=== PATIENT | male | born 1965 | race Caucasian/White ===

== ENCOUNTER 2024-07-17 09:02 | Outpatient (CLI) | payer OTHER, SELFPAY | END 2024-07-17 09:03 | disposition home or self-care (01) | LOC: NFLDUCREF 09:03 | PROVIDERS: PCP Nurse Practitioner; Visit Provider Nurse Practitioner | DX: L02.31 Cutaneous abscess of buttock (principal) | CPT/HCPCS: 87070 ==

== ENCOUNTER 2025-07-04 18:51 | Emergency (ER) | payer OTHER, SELFPAY ==
[2025-07-04] VITALS (19 sets, daily range): BP systolic 125–163; BP diastolic 85–104; PULSE 52–72; RESP 14–28; TEMP 36.9; O2SAT 91–95; BMI 27.6
--- OUTSIDE RECORDS SUMMARY | 2025-07-04 18:53 | XMS_ITS | Clinical Summary ---
Author Organization [facility] Address [address] [place] [address]. [place] [address] Care Team Providers Care Medical Office Asst Name Role Phone Adan English MD Primary Care Provider U navailable Allergies Active AllergyReactionsCriticalityNoted DateCommentsPravastatinMuscle Pain (Myalgia)11/13/2021imvastatinMuscle Pain (Myalgia)11/13/2021 Medications MedicationSigDispense QuantityRefillsLast FilledStart DateEnd DateStatus nitroglycerin (NITROSTAT) 0.4 MG sublingual tablet Indications:NSTEMI (non-ST elevated myocardial infarction) (H)For chest pain place 1 tablet under the tongue every 5 minutes for 3 doses. If symptoms persist 5 minutes after 1st dose call 911. 25 tablet Active aspirin 81 MG EC tablet Indications:NSTEMI (non-ST elevated myocardial infarction) (H)Take 1 tablet (81 mg) by mouth daily 30 tablet Active levothyroxine (SYNTHROID/LEVOTHROID) 88 MCG tablet Indications:Coronary artery disease involving [place] coronary artery of [place] heart with angina pectorisTake 1 tablet (88 mcg) by mouth daily 90 tablet Active rosuvastatin (CRESTOR) 40 MG tablet Indications:Coronary artery disease involving [place] coronary artery of [place] heart without angina pectorisTake 1 tablet (40 mg) by mouth daily 90 tablet Active isosorbide mononitrate (IMDUR) 30 MG 24 hr tablet Indications:Atherosclerosis of [place] coronary artery of [place] heart with unstable angina pectoris (H)Take 0.5 tablets (15 mg) by mouth daily Hold if Systolic Blood Pressure is less than 85. 90 tablet Active lisinopril (ZESTRIL) 30 MG tablet Indications:NSTEMI (non-ST elevated myocardial infarction) (H),Essential hypertensionTake 1 tablet (30 mg) by mouth daily Please make an appointment. [phone] 90 tablet 1Active Active Problems ProblemNoted DateDiagnosed DateStatus post coronary ynoagkfdv67/29/2020HDL kduqoqpvwh33/07/5804Yopxukmochwxtc78/07/2017Coronary artery disease involving [place] coronary artery of [place] heart without angina sjrydjuz52/23/2017 Overview (01/09/2017): 12/15/2016 - NSTEMI with 3.0x32mm Promus Premier JULIUS was successfully deployed across the OM1 lesion Mixed hfisyrnkkjbqsx50/23/2017Benign essential vkalyysecjdb50/15/2017NSTEMI (non-ST elevated myocardial infarction)12/15/2016Cervical stenosis of spine Overview (12/27/2019): s/p spinal fusion Family history of coronary artery disease Resolved Problems ProblemNoted DateDiagnosed DateResolved DateAcute chest pain Family History Medical HistoryRelationCommentsDiabetesFatherRelationStatusCommentsFather Social History Tobacco UseTypesPacks/DayYears UsedDateSmoking Tobacco: FormerCigarettesQuit: 11/2016Smokeless Tobacco: Never Tobacco Cessation:Counseling Given: Yes Alcohol UseStandard Drinks/WeekCommentsNo0 (1 standard drink = 0.6 oz pure alcohol)Adolescent EducationAnswerDate RecordedGetting School Help NeededNot on file04/10/2023Sex and Gender InformationValueDate RecordedSex Assigned at Not on fileLegal MkrDeoz3412/15/2016 4:19 AM CDTGender IdentityNot on fileSexual OrientationNot on file Last Filed Vital Signs Vital SignReadingTime TakenCommentsBlood Bycyasfs083/76001/16/2020 4:00 PM CDT Ihzix117701/16/2020 4:00 PM TCOBrtqncenmau69.6 ??C (97.9 ??F)01/16/2020 9:00 AM CDTRespiratory Idmy489101/16/2020 3:45 PM CDTOxygen Kuinjzrpqb72%01/16/2020 1:15 PM CDTInhaled Oxygen Concentration--Ajmumk64 kg (178 lb 9.6 oz)01/16/2020 9:00 AM UPKHbmloe268.3 cm (5' 11)01/16/2020 9:00 AM CDTBody Mass Index24.91 01/16/2020 9:00 AM CDT Plan of Treatment Not on file Insurance Advance Directives For more information, please contact: [phone] * Full Code (Latest Code Status on File) Date ActivatedDate InactivatedComments12/16/2016 5:29 PM01/16/2020 8:42 AM * Full Code Date ActivatedDate InactivatedComments12/15/2016 12:35 PM12/16/2016 5:29 PM * Full Code Date ActivatedDate InactivatedComments12/15/2016 6:59 AM12/15/2016 12:35 PM Care Teams Team MemberRelationshipSpecialtyStart DateEnd Date Adan English MD PCP - General12/15/16
--- OUTSIDE RECORDS SUMMARY | 2025-07-04 18:53 | XMS_ITS | Encounter Summary ---
Author Organization [facility] Address [address], [place] [address] Care Team Providers Care Orange Peel Operator Name Role Phone Vane Mendoza MD Primary Care Provider [phone] Reason for Visit * ReasonCommentsRefill Encounter Details DateTypeDepartmentCare Team (Latest Contact Info)Ciitulndvpl75/13/2025Refill Cardiology at [facility] [address] [address] Raven Hernandez, PAAmadouC [address] [place], [place] [address] Refill Social History Tobacco UseTypesPacks/DayYears UsedDateSmoking Tobacco: FormerCigarettes Smokeless Tobacco: Former Comments:quit a couple of ye ars ago/sometime in 2017 per pt. Alcohol UseStandard Drinks/WeekCommentsNot Currently0 (1 standard drink = 0.6 oz pure alcohol)PHQ-2AnswerDate RecordedPHQ-2 Goycj38507/20/2021Financial Resource StrainAnswerDate RecordedIs it hard for you to pay for the very basics like food, housing, medical care or heating?No12/03/2022Food InsecurityAnswerDate RecordedDoes your food run out before you have the money to buy more?No 12/03/2022Transportation NeedsAnswerDate RecordedDoes a lack of transportation keep you from your medical appointments or from getting your medications?No 12/03/2022Sex and Gender InformationValueDate RecordedSex Assigned at BirthNot on fileLegal EgkZdxu56/10/2012 5:13 AM CDTGender IdentityNot on fileSexual OrientationNot on filedocumented as of this encounter Plan of Treatment DateTypeDepartmentCare Team (Latest Contact Info)Zahdjwhkrvc72/17/2025 8:00 AM CSTAppointment [facility] [address] [place], [place] [phone] Vane Mendoza MD [address] [place], [place] [phone] documented as of this encounter Visit Diagnoses Diagnosis Essential hypertension (HRC)- Primary Unspecified essential hypertension documented in this encounter Care Teams Team MemberRelationshipSpecialtyStart DateEnd Date Vane Mendoza MD [address] [place], [place] [phone] PCP - GeneralInternal Larjvtqr39/14/22documented as of this encounter
--- OUTSIDE RECORDS SUMMARY | 2025-07-04 18:53 | XMS_ITS | Encounter Summary ---
Author Organization [facility] Address [address] [address] Care Team Providers Care Mortgage Loan Underwriter Name Role Phone Vane Mendoza MD Primary Care Provider [phone] Reason for Visit * ReasonCommentsRefill Encounter Details DateTypeDepartmentCare Team (Latest Contact Info)Sijedypynqg74/26/2025Refill Cardiology at [facility] [address] [address] Raven Hernandez, PAAmadouC [address] [place], [place] [address] Refill Social History Tobacco UseTypesPacks/DayYears UsedDateSmoking Tobacco: FormerCigarettes Smokeless Tobacco: Former Comments:quit a couple of ye ars ago/sometime in 2017 per pt. Alcohol UseStandard Drinks/WeekCommentsNot Currently0 (1 standard drink = 0.6 oz pure alcohol)PHQ-2AnswerDate RecordedPHQ-2 Jlclz59107/20/2021Financial Resource StrainAnswerDate RecordedIs it hard for you to pay for the very basics like food, housing, medical care or heating?No12/03/2022Food InsecurityAnswerDate RecordedDoes your food run out before you have the money to buy more?No 12/03/2022Transportation NeedsAnswerDate RecordedDoes a lack of transportation keep you from your medical appointments or from getting your medications?No 12/03/2022Sex and Gender InformationValueDate RecordedSex Assigned at BirthNot on fileLegal QdsUvsj88/10/2012 5:13 AM CDTGender IdentityNot on fileSexual OrientationNot on filedocumented as of this encounter Plan of Treatment DateTypeDepartmentCare Team (Latest Contact Info)Mqeanltpbuy11/17/2025 8:00 AM CSTAppointment [facility] Internal Medicine [address] [place], [place] [phone] Vane Mendoza MD [address] [place], [place] [phone] documented as of this encounter Visit Diagnoses Diagnosis Hyperlipidemia, unspecified hyperlipidemia type (HRC) documented in this encounter Care Teams Team MemberRelationshipSpecialtyStart DateEnd Date Vane Mendoza MD [address] [place], [place] [phone] PCP - GeneralInternal Vfmkbrqr27/14/22documented as of this encounter
--- OUTSIDE RECORDS SUMMARY | 2025-07-04 18:53 | XMS_ITS | Encounter Summary ---
Author Organization [facility] Address [address] [place] [address] Care Team Providers Care Test Examiner Name Role Phone Vane Mendoza MD Primary Care Provider [phone] Encounter Details DateTypeDepartmentCare Team (Latest Contact Info)Mtrbnhzjqam66/01/2025 Notes/Orders Centralized Outreach [address] [place] [address] [place] [address] Vane Mendoza MD [address] [place] [address] Type 2 diabetes mellitus without complication, without long-term current use of insulin (HRC) Social History Tobacco UseTypesPacks/DayYears UsedDateSmoking Tobacco: FormerCigarettes Smokeless Tobacco: Former Comments:quit a couple of ye ars ago/sometime in 2017 per pt. Alcohol UseStandard Drinks/WeekCommentsNot Currently0 (1 standard drink = 0.6 oz pure alcohol)PHQ-2AnswerDate RecordedPHQ-2 Shyku97207/20/2021Financial Resource StrainAnswerDate RecordedIs it hard for you to pay for the very basics like food, housing, medical care or heating?No12/03/2022Food InsecurityAnswerDate RecordedDoes your food run out before you have the money to buy more?No 12/03/2022Transportation NeedsAnswerDate RecordedDoes a lack of transportation keep you from your medical appointments or from getting your medications?No 12/03/2022Sex and Gender InformationValueDate RecordedSex Assigned at BirthNot on fileLegal GvcOfjy93/10/2012 5:13 AM CDTGender IdentityNot on fileSexual OrientationNot on filedocumented as of this encounter Plan of Treatment DateTypeDepartmentCare Team (Latest Contact Info)Tgiciblvpqw48/17/2025 8:00 AM CSTAppointment [facility] Internal Medicine [address] [place] [address] Vane Mendoza MD [address] [place] [address] NameTypePriorityAssociated DiagnosesOrder ScheduleHgb M8SEpaCepciuo Type 2 diabetes mellitus without complication, without long-term current use of insulin (HRC) Expected: 06/19/2025, Expires: 09/17/2025documented as of this encounter Visit Diagnoses Diagnosis Type 2 diabetes mellitus without complication, without long-term current use of insulin (HRC) documented in this encounter Care Teams Team MemberRelationshipSpecialtyStart DateEnd Date Vane Mendoza MD [address] [place], [place] [phone] PCP - GeneralInternal Tmoksvbh79/14/22documented as of this encounter
--- OUTSIDE RECORDS SUMMARY | 2025-07-04 18:53 | XMS_ITS | Clinical Summary ---
Author Organization [facility] Address [address] [place] [address] Care Team Providers Care File Conversion Operator Name Role Phone Unavailable Primary Care Provider Unavailabl e Allergies Active AllergyReactionsCriticalityNoted HwdwQlbsrvxwWfdnrajyiuzGurvwgx39/15/2010 PN: NUMBNESS YkbrmqzszbjMgftyou51/02/2009 PN: MYALGIA Medications MedicationSigDispense QuantityRefillsLast FilledStart DateEnd DateStatus Cholecalciferol, Vitamin D3, (VITAMIN D-3) 2,000 unit tablet Take 2 tablets by mouth every Thursday, Thursday and Thursday.ctive levothyroxine (SYNTHROID) 88 mcg tablet Indications:Unspecified hypothyroidismTake 1 tablet by mouth once daily. 90 tablet ctive lisinopriL (PRINIVIL; ZESTRIL) 30 mg tablet Take 30 mg by mouth once daily.08/08/2021ctive rosuvastatin (CRESTOR) 20 mg tablet Take 30 mg by mouth once daily.08/08/2021ctive nitroglycerin (NITROSTAT) 0.4 mg sublingual tablet TAKE ONE TABLET UNDER THE TONGUE EVERY 5 MINUTES RKEFRY2008/08/2021ctive isosorbide mononitrate (IMDUR) 30 mg extended release tablet 24 Hour Take 15 mg by mouth.01/18/2020Active ALPRAZolam (XANAX) 0.5 mg tablet Take 0.5 mg by mouth 2 times daily if needed.03/29/2021ctive Active Problems ProblemNoted DateDiagnosed DateMild dqpoetblv09/02/2013Vitamin D deficiency 04/07/20134441Kxsousjbwms57/18/2013Dyslipidemia, goal LDL below 20390nxiety and fplvbemksx63/07/2013DDD (degenerative disc disease), qnuxgvxm53/16/2012Mixed fkvxtvwghikvan75/23/2011Tobacco use msqgoqsc65/23/2011Unspecified hypothyroidism 03/11/2011 Immunizations ImmunizationAdministration DatesNext HirUtyr9702/25/2011 Family History Medical HistoryRelationNameCommentsDiabetesFatherDiabetesMotherRelationName StatusCommentsFatherDeceasedMother Social History Tobacco UseTypesPacks/DayYears UsedDateSmoking Tobacco: Every DayCigarettes0.5 Last attempted to quit: 11/18/2011Smokeless Tobacco: Never Tobacco Cessation:Ready to Q uit: No; Counseling Given: Yes Comments:1/2 pack Alcohol UseStandard Drinks/WeekCommentsNo0 (1 standard drink = 0.6 oz pure alcohol)Sex and Gender InformationValueDate RecordedSex Assigned at BirthNot on fileLegal EuaQycy6508/02/2012 6:45 AM CSTGender IdentityNot on fileSexual OrientationNot on fileOccupationIndustryJob Start DateJob End DateGLASS CUTTER - Fast GlassNot on fileNot on fileNot on file Last Filed Vital Signs Vital SignReadingTime TakenCommentsBlood Kpbjukpp674/7503 7:38 PM MISSILE INSPECTOR Dvxkj045909/28/2021 7:38 PM PQPHwjunuobntl52.9 ??C (98.5 ??F)09/28/2021 7:38 PM CSTRespiratory Pidm085909/28/2021 7:38 PM CSTOxygen Fmwadvbtly84%09/28/2021 7:38 PM CSTInhaled Oxygen Concentration--Rcixjt83.5 kg (184 lb)09/28/2021 7:38 PM MISSILE INSPECTOR Dmfprd300.3 cm (5' 11)09/28/2021 7:38 PM CSTBody Mass Index25.66009/28/2021 7:38 PM MISSILE INSPECTOR Plan of Treatment Health MaintenanceDue DateLast DoneCommentsDepression screening for age 12+ 1975HIV for age 15-Hepatitis C screening for age 18-79 1981Colonoscopy through age 7506/11/2008Pneumococcal series for age 50+ (1 of 1 - PCV)2013Zoster (shingles) series for age 50+ (1 of 2)2013 Lipids for age 45-750//09/2013, 04/06/2013, 12/06/2012, Additional history existsTetanus zymvfsx83/MI (ht and wt on same day) for age 18+/06/2022, 10/15/2016COVID-19 vaccine series ( season)/, 10/27/2020, 10/06/2020Influenza Vaccine (#1) 2025RSV vaccine for adults or (1 - 1-dose 75+ series)2038 Hepatitis B series for 19+Aged OutNo longer eligible based on patient's age to complete this topic Medical Devices ImplantedTypeAreaManufacturerDevice IdentifierShelf Expiration DateModel / Serial / [id number] Cerv 8mm 4deg S/Plug [[id number]][[id number]] Implanted:Qty: 1 on 12/03/2011 at [facility] Kbbmoysulkdo58/05/[id number]# / [id number] / [id number] Progenix Dbm 0.5cc [[id number]][[id number]] Implanted:[facility] 05/30/2013000505# / [id number] / [id number] Cerv 7mm 4deg W/Plug [[id number]][[id number]] Implanted:Qty: 1 on 12/03/2011 at [facility] [id number]# / [id number] / Plate Cerv Ant 32mm Two Level - [id number] Implanted:Qty: 1 on 12/03/2011 [facility] Spi[id number]# / / Screw 4.0x14mm Slf Drilling Va - [id number] Implanted:Qty: 5 on 12/03/2011 [facility] Spine[employer]ryker [id number]# / / Screw 4.0x16mm Slf Drilling Va - [id number] Implanted:Qty: 1 [facility]03/[facility] [employer] [id number]# / / Procedures Procedure NamePriorityDate/TimeAssociated DiagnosisCommentsLIPID PANEL W REFLEX MEASURED PWSXlfsxqr09/03/2014 9:54 AM MISSILE INSPECTOR Mixed hyperlipidemia from Last 3 Months or Most Recently Relevant to Health Maintenance Results * (ABNORMAL) LIPID PANEL W REFLEX MEASURED LDL (07/22/2013 9:54 AM MISSILE INSPECTOR)Component ValueRef RangeTest MethodAnalysis TimePerformed AtPathologist Signature CHOLESTEROL,MWQXS058(H)100 - 199 mg/dLESSENTIA HEALTH HZUUPMFLXKUPP880<150 mg/dLESSENTIA HEALTHHDL YNCBCSFXPND80(L)>40 mg/dLESSENTIA HEALTHCHOL/HDL RATIO5.43(H)<4.50ESSENTIA HEALTHNON-HDL ITMMFIHSHSK331Zeunhefpr mg/dLESSENTIA HEALTHLDL DZTJJYWKCDT341(H)<131 mg/dLESSENTIA HEALTHPATIENT STATUS Non-FastingABMAYO CLINIC HOSPITALpecimen (Source)Anatomical Location / LateralityCollection Method / VolumeCollection TimeReceived TimeBlood specimen (specimen)BLOOD SPECIMEN / Vrrverp2707/22/2013 9:54 AM CST07/22/2013 9:47 AM MISSILE INSPECTOR Narrative Authorizing ProviderResult TypeResult StatusSherri Queenie Spencer DOCHEMISTRYFinal ResultPerforming OrganizationAddressCity/State/ZIP CodePhone Number [facility] INTER[facility] ZIP [address] [address] [place] [address] from Last 3 Months or Most Recently Relevant to Health Maintenance Insurance * Guarantor: Charly Fung TypeRelation to PatientDate of BirthPhone Billing AddressPersonal/IkihtrNcwt1965 [address], [place] [address] [place] [address] * Guarantor: Charly Fung TypeRelation to PatientDate of BirthPhone Billing AddressWorkers HhfrYohf1965 [address] [place] [address] Advance Directives * Full Code (Latest Code Status on File) Date ActivatedDate InactivatedComments12/03/2011 12:31 PM12/04/2011 4:51 PM * Full Code Date ActivatedDate InactivatedComments12/03/2011 6:32 AM12/03/2011 12:31 PM
--- OUTSIDE RECORDS SUMMARY | 2025-07-04 18:53 | XMS_ITS | Encounter Summary ---
Author Organization [facility] Address [address], [place] [address] Care Team Providers Care Crystal Attacher Name Role Phone Vane Mendoza MD Primary Care Provider [phone] Reason for Visit * ReasonCommentsRefill Encounter Details DateTypeDepartmentCare Team (Latest Contact Info)Uybuwiwnzoc07/08/2025Refill Cardiology at [facility] [address] [address] Raven Hernandez, PAAmadouC [address] [place], [place] [address] Refill Social History Tobacco UseTypesPacks/DayYears UsedDateSmoking Tobacco: FormerCigarettes Smokeless Tobacco: Former Comments:quit a couple of ye ars ago/sometime in 2017 per pt. Alcohol UseStandard Drinks/WeekCommentsNot Currently0 (1 standard drink = 0.6 oz pure alcohol)PHQ-2AnswerDate RecordedPHQ-2 Bvdeg94707/20/2021Financial Resource StrainAnswerDate RecordedIs it hard for you to pay for the very basics like food, housing, medical care or heating?No12/03/2022Food InsecurityAnswerDate RecordedDoes your food run out before you have the money to buy more?No 12/03/2022Transportation NeedsAnswerDate RecordedDoes a lack of transportation keep you from your medical appointments or from getting your medications?No 12/03/2022Sex and Gender InformationValueDate RecordedSex Assigned at BirthNot on fileLegal UuzKqbw70/10/2012 5:13 AM CDTGender IdentityNot on fileSexual OrientationNot on filedocumented as of this encounter Plan of Treatment DateTypeDepartmentCare Team (Latest Contact Info)Rljnsfgqzum73/17/2025 8:00 AM CSTAppointment [facility] Internal Medicine [address] [place], [place] [phone] Vane Mendoza MD [address] [place], [place] [phone] documented as of this encounter Visit Diagnoses Diagnosis Essential hypertension (HRC)- Primary Unspecified essential hypertension documented in this encounter Care Teams Team MemberRelationshipSpecialtyStart DateEnd Date Vane Mendoza MD [address] [place], [place] [phone] PCP - GeneralInternal Ymlknpom54/14/22documented as of this encounter
--- OUTSIDE RECORDS SUMMARY | 2025-07-04 18:54 | XMS_ITS | Clinical Summary ---
Author Organization [facility] Address [address], [place] [address] Care Team Providers Care Night Guard Name Role Phone Vane Mendoza MD Primary Care Provider [phone] Source Comments You are receiving this document as you are listed as the primary care provider,follow-up provider, or the patient has been referred to you for consultation.This is in compliance with the Medicare andMedicaid EHR Incentive Program,which states Providers who transition their patient to another setting of careor provider of care or refers their patient to another provider of care shouldprovide summary care record for each transition of care or referral. NONOMesilla Valley HospitalOcular Therapeutix Allergies Active AllergyReactionsCriticalityNoted DateCommentsBee VenomOther, see comments 08/11/2023 Severe localized swelling Vfdvsilcvis54/15/2010 PN: NUMBNESS Iipwwhzvisn09/02/2009 PN: MYALGIA Medications MedicationSigDispense QuantityRefillsLast FilledStart DateEnd DateStatus aspirin EC 81 MG enteric coated tablet Take 1 Tablet (81 mg) by mouth daily.12/16/2016Active nitroglycerin (NITROSTAT) 0.[address] 1 Tablet (0.4 mg) under tongue every 5 minutes as needed. 10 Tablet 1104Active Coenzyme Q10 (COQ-10 OR) Active cholecalciferol (VITAMIND3) 50 MCG (2000 UT) tablet Take 1 Tablet (2,000 Units) by mouth daily.Active lisinopril (ZESTRIL) 2.5 MG tablet Take 1 Tablet (2.5 mg) by mouth daily. 90 Tablet 305/13/2025Active levothyroxine (SYNTHROID) 150 MCG tablet Indications:Hypothyroidism, unspecified type (HRC)TAKE 1 TABLET(150 MCG) BY MOUTH DAILY 90 Tablet 5Active ezetimibe (ZETIA) 10 MG tablet Indications:Type 2 diabetes mellitus without complication, without long-term current use of insulin (HRC)TAKE 1 TABLET(10 MG) BY MOUTH DAILY 90 Tablet 5Active amLODIPine (NORVASC) 5 MG tablet Indications:Essential hypertension (HRC)TAKE 1 TABLET(5 MG) BY MOUTH DAILY 90 Tablet 5Active rosuvastatin (CRESTOR) 20 MG tablet Indications:Hyperlipidemia, unspecified hyperlipidemia type (HRC)Take 2 Tablets (40 mg) by mouth daily. 180 Tablet 5Active metoprolol succinate (TOPROL XL) 50 MG 24 hour release tablet Indications:Essential hypertension (HRC)TAKE 1 TABLET(50 MG) BY MOUTH DAILY AT BEDTIME 90 Tablet 5Active metoprolol succinate (TOPROL XL) 50 MG 24 hour release tablet TAKE 1 TABLET(50 MG) BY MOUTH DAILY AT BEDTIME 90 Tablet 312Discontinued rosuvastatin (CRESTOR) 20 MG tablet Indications:Hyperlipidemia, unspecified hyperlipidemia type (HRC)Take 2 Tablets (40 mg) by mouth daily. 90 Tablet 303Discontinued Active Problems ProblemNoted DateDiagnosed DateType 2 diabetes mellitus without complication, without long-term current use of ctqdrza4205/30/2022 Overview (05/30/2022): Diagnosed in May 2022 based on a Hgb A1c of 6.6 on 05/20/22 and Hgb A1c of 6.5 on 05/29/22. Hand /09/2022mputation finger, ukstzrbcb32/07/2022 Overview (04/25/2022): Added automatically from request for surgery [id number] S/P CABG x Essential zwjevxduihne96/07/2022oronary artery disease 12/11/2021 Overview (12/11/2021): Added automatically from request for surgery [id number] Attention deficit hyperactivity disorder (ADHD)10/01/2009 Overview (03/11/2017): LW Onset: 01OCT2009 ; Attention Deficit Dis w Hyperactivity Alcohol abuse, in ibswoovnv57/15/2010 Overview (03/11/2017): LW Modifier: SOBRIETY SINCE 04/2009 LW Onset: 01OCT2009 ; Alcohol Abuse Remission Dmjcxfqhpdhaej45/09/2009 Overview (03/11/2017): LW Onset: 07/2008 ; Hypothyroidism On Replacement Wljwxkxrfidyav48/09/2009 Overview (02/21/2016): LW Modifier: DECLINE TREATMENT LW Onset: 07/2008 Nonspecific abnormal results of liver function study08/07/2008 Overview (03/11/2017): LW Modifier: WORKUP NEGATIVE LW Onset: ; Liver Function Tests Abnormal Depressive yoyjvgpc37/11/2008 Overview (03/11/2017): Depression NOS Resolved Problems ProblemNoted DateDiagnosed DateResolved DateMixed, or nondependent drug abuse Overview (03/11/2017): LW Modifier: METHAMPHETARMINE; SOBRIETY SINCE 04/2009 ; Substance Abuse Polysubstance Impaired glucose tolerance test Overview (03/11/2017): LW Onset: 07/2008 ; Glucose Intolerance (Impaired Tolerance) Nonspecific abnormal results of thyroid function study Overview (03/11/2017): LW Onset: ; TSH Elevated Encounters DateTypeDepartmentCare YjtaZpnqwfzsytd92/13/2025Refill Cardiology at [address] [address] Raven Hernandez PA-Ladonna Zwdrwv5606/19/2025Notes/Orders Centralized Outreach [address] [place] [address] [place] [phone] Vane Mendoza MD Type 2 diabetes mellitus without complication, without long-term current use of insulin (HRC)06/14/2025Refill Cardiology at [facility] [address] [address] [address] [place] [address] Raven Hernandez PA-C Mszvbl3105/27/2025Refill Cardiology at [facility] [address] [place] [phone] Raven Hernandez PA-C Kekgxa4105/12/2025 10:45 AM CDTAncillary Procedure [facility] [address] [place] [address] Giovani Joy PA-C Foreign body in skin of finger, initial bzgfvkruf67/24/2025 10:40 AM CDTOffice Visit [facility] [address] [place] [address] Giovani Joy PA-C Foreign body in skin of finger, initial encounter; Finger infectionfrom Last 3 Months Immunizations ImmunizationAdministration DatesNext DuePfizer Bivalent 12+2Pfizer Monovalent 12+ Purple Top06/18/2021,10/27/2020,10/06/2020Td1Tdap 08/08/2021,02/25/2011 Family History Medical HistoryRelationNameCommentsGlaucomaNegative Family HistoryMacular DegenerationNegative Family History Social History Tobacco UseTypesPacks/DayYears UsedDateSmoking Tobacco: FormerCigarettes Smokeless Tobacco: Former Tobacco Cessation:Counseling Given: Not Answered Comments:quit a couple of years ago/sometime in 2017 per pt. Alcohol UseStandard Drinks/WeekCommentsNot Currently0 (1 standard drink = 0.6 oz pure alcohol)PHQ-2AnswerDate RecordedPHQ-2 Gcktt183Financial Resource StrainAnswerDate RecordedIs it hard for you to pay for the very basics like food, housing, medical care or heating?No12/03/2022Food InsecurityAnswerDate RecordedDoes your food run out before you have the money to buy more?No 12/03/2022Transportation NeedsAnswerDate RecordedDoes a lack of transportation keep you from your medical appointments or from getting your medications?No 12/03/2022Sex and Gender InformationValueDate RecordedSex Assigned at BirthNot on fileLegal TfeOsoj89/10/2012 5:13 AM CDTGender IdentityNot on fileSexual OrientationNot on file Last Filed Vital Signs Vital SignReadingTime TakenCommentsBlood Gvmpdlro774/7805/12/2025 10:32 AM CDT Lenyy610905/12/2025 10:32 AM WUMNlasksxqjsy96.8 ??C (98.3 ??F)05/12/2025 10:32 AM CDTRespiratory Jkog1658 10:32 AM CDTOxygen Qamjdidilu09%05/12/2025 10:32 AM CDTInhaled Oxygen Concentration--Rouiyb53.4 kg (197 lb)11/29/2024 8:24 AM CDT Fdslai295.7 cm (5' 10.75)12/26/2024 2:44 PM CDTBody Mass Index27.6705/09/2024 2:37 PM CDT Plan of Treatment DateTypeDepartmentCare Team (Latest Contact Info)Zovjatcknox16/17/2025 8:00 AM CSTAppointment [facility] [address] [place] [address] Vane Mendoza MD [address] [place] [address] Health MaintenanceDue DateLast DoneCommentsHep B Immunization Discussion 1963HIV Screening (Preventive Services)1979Pneumococcal Vaccine 50+ Yrs (1 of 2 - PCV)1982Zoster/Shingles Vaccine (1 of 2)2013dult Preventive Visit/3Diabetes: Eye Exam/, 01/05/2024, 01/05/2024, Additional history existsCOVID-19 Vaccine ( season)/07/2021, 06/18/2021, 10/27/2020, Additional history exists Influenza Vaccine (#1)2025Diabetes: RNRS8J19//, 06/28/2024, 06/28/2024, Additional history existsDiabetes: Albumin/Creatinine Ratio, Urine/, 11/24/2023, 3Diabetes: Creatinine /, 11/24/2023, 12/03/2022, Additional history existsDiabetes: Foot Exam/, 11/24/2023, 3PSA Screening Discussion /, 11/24/2023, 05/20/2022, Additional history exists Ducjyiykplp92/28/3Diabetes: Lipid Panel, 06/28/2024, 05/13/2023, Additional history existsDTaP/Tdap/Td Vaccine (3 - Tdap) , 02/25/2011, 05/03/2002RSV Vaccine (1 - 1-dose 75+ series) 2038Hep C Screening (Preventive Services)Icvutkvsr89/21/2009Cholesterol Mytplggyeojb82/13/2025, 06/28/2024, 05/13/2023, Additional history existsHepA VaccineAged OutNo longer eligible based on patient's age to complete this topic HepB VaccineAged OutNo longer eligible based on patient's age to complete this topicHib VaccineAged OutNo longer eligible based on patient's age to complete this topicIPV (Polio) VaccineAged OutNo longer eligible based on patient's age to complete this topicMCV4 VaccineAged OutNo longer eligible based on patient's age to complete this topicMeningococcal B VaccineAged OutNo longer eligible based on patient's age to complete this topic Medical Devices ImplantedTypeAreaManufacturerDevice IdentifierShelf Expiration DateModel / Serial / LotProt Axoguard Nerve 3.5x40mm - [id number] Implanted:Qty: 1 on 04/25/2022 by Audi Reyes MD at [facility] XENOGRAFTLeft: FINGERAxo[employer] [id number] / / [id number]:left fifth digit Procedures Procedure NamePriorityDate/TimeAssociated DiagnosisCommentsXR FINGER RT MIDDLE 2+ JQHJHYYWM06/24/2025 10:47 AM CDT Foreign body in skin of finger, initial encounter ALBUMIN/CREAT MOWFMNaxjoei98/13/2025 8:55 AM CDT Type 2 diabetes mellitus without complication, without long-term current use of insulin (HRC) PROSTATIC SPECIFIC ANTIGEN(SCREEN)Gkbnsld2511/29/2024 8:51 AM CDT Screening for prostate cancer BASIC METABOLIC DDSXPVhphixf13/13/2025 8:51 AM CDT Type 2 diabetes mellitus without complication, without long-term current use of insulin (HRC) HGB M5ZLjznkvp84/13/2025 8:51 AM CDT Type 2 diabetes mellitus without complication, without long-term current use of insulin (HRC) LIPID PANEL & DIRECT LDL (IF NEEDED)Cizokgs4411/29/2024 8:51 AM CDT Coronary artery disease involving [place] coronary artery of [place] heart without angina pectoris (HRC) CTQAZEMUXEXUghoxbd16/28/2023 12:58 PM CDT Screen for colon cancer HEPATITIS C ANTIBODY, WITH REFLEX (ANTI-HCV)Jkukyas1108/09/2008 8:24 AM MARKETING SUPPORT ASSISTANT from Last 3 Months or Most Recently Relevant to Health Maintenance Results * XR Finger Rt Middle 2+ Views (05/12/2025 10:47 AM CDT)Anatomical Region LateralityModalityUpper Extremity, HandDigital RadiographySpecimen (Source) Anatomical Location / LateralityCollection Method / VolumeCollection Time Received Time Narrative 05/12/2025 10:50 AM CDT EXAM: XR FINGER RT MIDDLE 2+ VIEWS INDICATION: foreign body finger COMPARISON: None. FINDINGS: No acute bony abnormalities. ??No radiopaque foreign object. 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 Signed by: Yunior Fitzpatrick 05/12/2025 10:50 AM Procedure Note Yunior Fitzpatrick MD - 05/12/2025 EXAM: XR FINGER RT MIDDLE 2+ VIEWS INDICATION: foreign body finger COMPARISON: None. FINDINGS: No acute bony abnormalities. No radiopaque foreign object.Jolz-wu-riqyguoo osteoarthritis at the MCP and IP joints of the middlefinger, greatest at the MCP joint. Signed by: Yunior Fitzpatrick 05/12/2025 10:50 AM Authorizing ProviderResult TypeResult StatusSushanita GUTIERREZ GDFinal Result * Albumin/Creatinine Ratio,Random Urine (11/29/2024 8:55 AM CDT)ComponentValue Ref RangeTest MethodAnalysis TimePerformed AtPathologist Signature Albumin/Creatinine Ratio, Urine, Swhfpr15<30 mg/g011/29/2024 2:19 PM CDT [facility] LABAlbumin, Urine, Vhhhtx69.4mg/L11/29/2024 2:19 PM CDT [facility] LABCreatinine, Urine, Vpficx31>20 mg/dL mg/dL11/29/2024 2:19 PM CDTHEFORMERLY [facility] LABSpecimen (Source)Anatomical Location / LateralityCollection Method / VolumeCollection TimeReceived TimeUrineNon-blood Collection / Pratpmx9011/29/2024 8:55 AM CDT11/29/2024 8:55 AM CDT Narrative Authorizing ProviderResult TypeResult StatusVane Mendoza MDLAB_1Final Result Performing OrganizationAddressCity/State/ZIP CodePhone Number [facility] [address] [address] * (ABNORMAL) Lipid Panel and Direct LDL (If Needed) (11/29/2024 8:51 AM CDT) ComponentValueRef RangeTest MethodAnalysis TimePerformed AtPathologist PnbvwmbwwQzzbgsgqoye4905 - 199 mg/dL11/29/2024 12:43 PM [facility] FXWXlnfsygxyaji938<=149 mg/dL11/29/2024 12:43 PM [facility] LABHDL Saylhamsdwx67(L)>=40 mg/dL11/29/2024 12:43 PM [facility] LABLDL, Bqhcadqybn50<130 mg/dL11/29/2024 12:43 PM [facility] LABNon HDL Chol, Jvufdzssvl43<=159 mg/dL11/29/2024 12:43 PM CDT [facility] LABCholesterol/HDL Ratio3.5<=5.005/ 12:43 PM CDT [facility] LABHours Fasting3.08 - 12 Hours11/29/2024 12:43 PM CDT [facility] LABComment:sip of sodaSpecimen (Source)Anatomical Location / LateralityCollection Method / VolumeCollection TimeReceived TimeBlood Venipuncture / Nchhlnx3311/29/2024 8:51 AM CDT11/29/2024 8:51 AM CDT Narrative Authorizing ProviderResult TypeResult StatusEdra Reji EVANSLAB_1Final Result Performing OrganizationAddressCity/State/[facility] CodePhone Number [facility] [address] [address] [address] [place] [phone] * (ABNORMAL) Basic Metabolic Panel (11/29/2024 8:51 AM CDT)ComponentValueRef RangeTest MethodAnalysis TimePerformed AtPathologist EchppbldpFazhla499142 - 145 mmol/L11/29/2024 12:43 PM [facility] LABPotassium3.93.5 - 5.1 mmol/L11/29/2024 12:43 PM [facility] CEKXqqqjxjp03232 - 109 mmol/L11/29/2024 12:43 PM [facility] GZYYV75947 - 29 mmol/L 11/29/2024 12:43 PM [facility] LABAnion Gap86 - 16 mmol/L 11/29/2024 12:43 PM [facility] LABCalcium9.28.4 - 10.4 mg/dL 11/29/2024 12:43 PM [facility] WVUMZM843 - 26 mg/dL11/29/2024 12:43 PM [facility] LABCreatinine1.030.73 - 1.18 mg/dL 11/29/2024 12:43 PM [facility] MREPiqybqx881(H)70 - 100 mg/dL 11/29/2024 12:43 PM [facility] LABComment:The given reference range is for the fasting state. Non-fasting reference range for glucose is 70 -180 mg/dL.GFR, Estimated>60>60 mL/min/1.51g68711/29/2024 12:43 PM CDT [facility] Fasting3.08 - 12 Hours11/29/2024 12:43 PM CDT [facility] LABComment:sip of sodaSpecimen (Source)Anatomical Location / LateralityCollection Method / VolumeCollection TimeReceived TimeBlood Venipuncture / Jjbthbh6211/29/2024 8:51 AM CDT11/29/2024 8:51 AM CDT Narrative Authorizing ProviderResult TypeResult StatusEdra Reji EVANSLAB_1Final Result Performing OrganizationAddressCity/State/ZIP CodePhone Number [facility] [address] [address] [address] [place] [phone] * Prostatic Specific Antigen (Screen) (11/29/2024 8:51 AM CDT)ComponentValueRef RangeTest MethodAnalysis TimePerformed AtPathologist SignatureProstatic Specific Antigen1.10.0 - 4.0 ng/mL11/29/2024 1:02 PM CDDI[facility] LABSpecimen (Source)Anatomical Location / LateralityCollection Method / Volume Collection TimeReceived TimeBloodVenipuncture / Yfzavon8211/29/2024 8:51 AM CDT 11/29/2024 8:51 AM CDT [facility] - 11/29/2024 1:02 PM CDT The [employer] PSA Chemiluminescent immunoassay is used. Results obtained with different test methods or kits cannot be used interchangeably. Authorizing ProviderResult TypeResult Ric Mendoza MDLAB_1Final Result Performing OrganizationAddressCity/State/ZIP CodePhone Number [facility] [address] * (ABNORMAL) Hgb A1C (11/29/2024 8:51 AM CDT)ComponentValueRef RangeTest Method Analysis TimePerformed AtPathologist SignatureHemoglobin A1C7.0(H)<=5.6 % 11/29/2024 1:07 PM [facility] LABEstimated Average Glucose (Calc)154< 117 mg/dL11/29/2024 1:07 PM [facility] LABComment: Estimated average glucose (eAG) converts A1c into glucose units (mg/dL) and estimates average glucose over the past approximately 3 months. The eAG reference interval (<117 mg/dL) corresponds to an A1c of <5.7%.Specimen (Source)Anatomical Location / LateralityCollection Method / VolumeCollection TimeReceived TimeBloodVenipuncture / Yaqnafi4211/29/2024 8:51 AM CDT11/29/2024 8:51 AM CDT [facility] - 11/29/2024 1:07 PM CDT For patients not previously diagnosed with diabetes: 5.7-6.4%: Increased risk for diabetes 6.5% and greater: Diagnostic for diabetes For patients diagnosed with diabetes: <8.0%: Goal of therapy for ages 18-75 Clinicians may recommend a higher or lower goal for specific individuals. Authorizing ProviderResult TypeResult Ric Mendoza MDLAB_1Final Result Performing OrganizationAddressCity/State/ZIP CodePhone Number [facility] [address] * COLONOSCOPY [[id number]] (04/16/2023 12:58 PM CDT)Specimen (Source)Anatomical Location / LateralityCollection Method / VolumeCollection TimeReceived Time 04/16/2023 12:58 PM CDT Narrative GI ([facility]) - 04/16/2023 1:44 PM CDT Instrument Name: 288 Indications: ? Screening in patient at increased risk: Family ? history of 1st-degree relative with colorectal ? cancer Providers: ? Vignesh Rabago, Dorys Ponce, LAURA, ? Aure Keating Patient Profile: ? Juana Bowel Prep Referring MD: ?Vane Mendoza Medicines: ? Fentanyl 75 micrograms IV, Midazolam 3 mg IV Complications: ? No immediate complications. Procedure: ? Pre-Anesthesia Assessment: ? - The risks and benefits of the procedure and the ? sedation options and risks were discussed with the ? patient. All questions were answered and informed ? consent was obtained. ? - Prior to the procedure, a History and Physical ? was performed, and patient medications, allergies ? and sensitivities were reviewed. The patient's ? tolerance of previous anesthesia was reviewed. ? After I obtained informed consent, the scope was ? passed under direct vision. Prior to sedation, ? patient identity and procedure was reverified. ? Throughout the procedure, the patient's blood ? pressure, pulse, and oxygen saturations were ? monitored continuously. The Colonoscope was ? introduced through the anus and advanced to the ? terminal ileum, with identification of the ? appendiceal orifice and IC valve. The colonoscopy ? was performed without difficulty. The patient ? tolerated the procedure well. The quality of the ? bowel preparation was good. Findings: ? The perianal and digital rectal examinations were normal. ? A 2 mm polyp was found in the cecum. The polyp was sessile. The polyp ? was removed with a jumbo cold forceps. Resection and retrieval were ? complete. Estimated blood loss: none. ? Two sessile polyps were found in the sigmoid colon. The polyps were 3 ? to 5 mm in size. These polyps were removed with a cold snare. ? Resection and retrieval were complete. Estimated blood loss: none. ? A localized area of mildly erythematous mucosa was found in the ? sigmoid colon. This was biopsied with a cold jumbo forceps for ? histology. Estimated blood loss: none. Moderate Sedation: ? Moderate (conscious) sedation was administered by the nurse and ? supervised by the endoscopist. The patient's oxygen saturation, heart ? rate, blood pressure and response to care were monitored. Total ? physician intraservice time was 24 minutes. Impression: ?- One 2 mm polyp in the cecum, removed with a jumbo ? cold forceps. Resected and retrieved. ? - Two 3 to 5 mm polyps in the sigmoid colon, ? removed with a cold snare. Resected and retrieved. ? - Erythematous mucosa in the sigmoid colon. ? Biopsied. Recommendation: ?- Repeat colonoscopy in 5 years for screening ? purposes. ? - Await pathology results. Procedure Code(s): ? --- Professional --- ? 74780, PT, Colonoscopy, flexible; with removal of ? tumor(s), polyp(s), or other lesion(s) by snare ? technique ? 77199, 59,PT, Colonoscopy, flexible; with biopsy, ? single or multiple ? G0500, PT, Moderate sedation services provided by ? the same physician or other qualified health care ? professional performing a gastrointestinal ? endoscopic service that sedation supports, ? requiring the presence of an independent trained ? observer to assist in the monitoring of the ? patient's level of consciousness and physiological ? status; initial 15 minutes of intra-service time; ? patient age 5 years or older (additional time may ? be reported with 80156, as appropriate) ? 51019, PT, Moderate sedation; each additional 15 ? minutes intraservice time Diagnosis Code(s): ? --- Professional --- ? Z12.11, Encounter for screening for malignant ? neoplasm of colon ? Z80.0, Family history of malignant neoplasm of ? digestive organs ? K63.5, Polyp of Colon ? K63.89, Other specified diseases of intestine CPT copyright 2021 [employer]. All rights reserved. The codes documented in this report are preliminary and upon administrative intern review may be revised to meet current compliance requirements. Attending Participation: Vignesh Rabago, 04/16/2023 1:44:10 PM Number of Addenda: 0 Note Initiated On: 04/16/2023 12:58 PM Procedure Note Vignesh Rabago MD - 04/16/2023 Instrument Name: 288 Indications: Screening in patient at increased risk: Family history of 1st-degree relative with colorectal cancer Providers: Dorys Waldron RN, Aure Keating Patient Profile: Golytely Bowel Prep Referring MD: Vane Mendoza Medicines: Fentanyl 75 micrograms IV, Midazolam 3 mg IV Complications: No immediate complications. Procedure: Pre-Anesthesia Assessment: - The risks and benefits of the procedure and the sedation options and risks were discussed with the patient. All questions were answered and informed consent was obtained. - Prior to the procedure, a History and Physical was performed, and patient medications, allergies and sensitivities were reviewed. The patient's tolerance of previous anesthesia was reviewed. After I obtained informed consent, the scope was passed under direct vision. Prior to sedation, patient identity and procedure was reverified. Throughout the procedure, the patient's blood pressure, pulse, and oxygen saturations were monitored continuously. The Colonoscope was introduced through the anus and advanced to the terminal ileum, with identification of the appendiceal orifice and IC valve. The colonoscopy was performed without difficulty. The patient tolerated the procedure well. The quality of the bowel preparation was good. Findings: The perianal and digital rectal examinations were normal. A 2 mm polyp was found in the cecum. The polyp was sessile. The polyp was removed with a jumbo cold forceps. Resection and retrieval were complete. Estimated blood loss: none. Two sessile polyps were found in the sigmoid colon. The polyps were 3 to 5 mm in size. These polyps were removed with a cold snare. Resection and retrieval were complete. Estimated blood loss: none. A localized area of mildly erythematous mucosa was found in the sigmoid colon. This was biopsied with a cold jumbo forceps for histology. Estimated blood loss: none. Moderate Sedation: Moderate (conscious) sedation was administered by the nurse and supervised by the endoscopist. The patient's oxygen saturation, heart rate, blood pressure and response to care were monitored. Total physician intraservice time was 24 minutes. Impression: - One 2 mm polyp in the cecum, removed with a jumbo cold forceps. Resected and retrieved. - Two 3 to 5 mm polyps in the sigmoid colon, removed with a cold snare. Resected andretrieved. - Erythematous mucosa in the sigmoid colon. Biopsied. Recommendation: - Repeat colonoscopy in 5 years for screening purposes. - Await pathology results. Procedure Code(s): --- Professional --- 53120, PT, Colonoscopy, flexible; with removal of tumor(s), polyp(s), or other lesion(s) by snare technique 82986, 59,PT, Colonoscopy, flexible; with biopsy, single or multiple G0500, PT, Moderate sedation services provided by the same physician or other qualified health anesthesiologist and critical care performing a gastrointestinal endoscopic service that sedation supports, requiring the presence of an independent trained observer to assist in the monitoring of the patient's level of consciousness and physiological status; initial 15 minutes of intra-service time; patient age 5 years or older (additional time may be reported with 57963, as appropriate) 43207, PT, Moderate sedation; each additional 15 minutes intraservice time Diagnosis Code(s): --- Professional --- Z12.11, Encounter for screening for malignant neoplasm of colon Z80.0, Family history of malignant neoplasm of digestive organs K63.5, Polyp of Colon K63.89, Other specified diseases of intestine CPT copyright 2021 [employer]. All rights reserved. The codes documented in this report are preliminary and upon administrative intern review may be revised to meet current compliance requirements. Attending Participation: Vignesh Rabago, 04/16/2023 1:44:10 PM Number of Addenda: 0 Note Initiated On: 04/16/2023 12:58 PM Authorizing ProviderResult TypeResult StatusBenjamin M Brasseur MDDIGESTIVE CARE Final ResultPerforming OrganizationAddressCity/State/ZIP CodePhone Number [facility] (PROVATION) [place], [place] * Hepatitis C Antibody, with Reflex (08/09/2008 8:24 AM MARKETING SUPPORT ASSISTANT)ComponentValueRef RangeTest MethodAnalysis TimePerformed AtPathologist SignatureHepatitis C AntibodyNon ReacNon ReacHP CONVERSIONSpecimen (Source)Anatomical Location / LateralityCollection Method / VolumeCollection TimeReceived Time08/09/2008 8:24 AM MARKETING SUPPORT ASSISTANT Narrative Authorizing ProviderResult TypeResult StatusNathan Tyler [id number]_1Final Result Performing OrganizationAddressCity/State/ZIP CodePhone Number [facility] CONVERSION from Last 3 Months or Most Recently Relevant to Health Maintenance Insurance * Guarantor: Latoya Fung TypeRelation to PatientDate of BirthPhone Billing AddressPersonal/IkomxwImkj1965 [address] [address] * Guarantor: Latoya Fung TypeRelation to PatientDate of BirthPhone Billing AddressPersonal/CawluzNbse1965 [address] [address] * Guarantor: Latoya Fung TypeRelation to PatientDate of BirthPhone Billing AddressWorkers QktjBeiy1965 [address] [address] Advance Directives * Full Code (Latest Code Status on File) Date ActivatedDate EfkembcqdewUmaqtuhm32/7/2022 8:32 PM10 11:36 PM * Full Code Date ActivatedDate TjbxqsnrnznFhfqccnc93/7/2022 1:56 PM10 8:32 PM * Full Code Date ActivatedDate InactivatedComments01/09/2022 11:48 AM01/13/2022 4:21 PM * Full Code Date ActivatedDate InactivatedComments01/07/2022 2:38 PM01/09/2022 11:48 AMFull code in effect for 30 days * Full Code Date ActivatedDate InactivatedComments12/10/2021 1:27 PM12/10/2021 6:48 PM Care Teams Team MemberRelationshipSpecialtyStart DateEnd Date Vane Mendoza MD [address] [place] [address] PCP - GeneralInternal Fvcnlmsb27/14/22
--- NOTE | 2025-07-04 18:56 | ED.GENADULT ---
HPI - General Adult General Date Seen: 07/04/25 Chief complaint: Chest Pain Stated complaint: HBP, SOB, hands tingling Time Seen by Provider: 07/04/25 18:55 History of Present Illness HPI narrative: 60-year-old male with a past medical history of hypertension, hypothyroidism, hyperlipidemia, prediabetes, tobacco use, anxiety/depression, and coronary disease. He apparently had stents placed in his heart several years ago and then had a triple bypass done at [facility], about 5 or 6 years ago. He normally gets primary care to the [facility] and has a primary care provider, Dr. Olegario Morataya in [place]. He has a motor vehicle license clerk, Dr. Hernandez through the [facility] system but has not seen her for a couple of years. He presents to the ER today with concern for hypertension. He actually says that he received a message from his primary care provider that he might have prediabetes and that they reminded him to get a blood pressure cuff and amend monitor his blood pressures at home. He went to get a blood pressure cuff yesterday and has been measuring blood pressure running high at about 160/90 or 160/100 since yesterday. He also checked his blood pressure at the pharmacy ([facility]) a couple of days ago and apparently had a systolic of 180. He says that he just has not been feeling well for at least 4 weeks, maybe 6 weeks. He says had fatigue, easy sleep. He has also had some dyspnea on exertion. Also sometimes he gets dyspnea and left arm numbness. This happens from time to time it is not always related to exertion but does happen sometimes when he was exerting. In particular yesterday he was climbing up on a ladder check his roof at home and felt some dizziness, headache, left arm numbness. Today he still having episodes of dizziness and left arm numbness but feels a little bit less bad today that he did yesterday. He measured his blood pressure cuff again today and it was 160/90. His encouraged him to come in. He is not having any cough. No fever. No abdominal pain. No back pain. He does get occasional headaches. No blurry vision or vision loss. He has intermittent numbness affecting his left arm but never his right arm and never his legs. No swelling in his legs. No recent travel. No history of PE. He takes ttyb-exs-zgpttzh baby aspirin. He is on metoprolol, amlodipine, lisinopril for blood pressure. He he does not know the doses. He is on rosuvastatin and ezetimbe for cholesterol. He is on levothyroxine Related Data Home Medications ?Medication ?Instructions ?Recorded ?Confirmed amlodipine 5 mg tablet 5 mg PO DAILY 08/13/23 07/17/24 ezetimibe 10 mg tablet 10 mg PO DAILY 08/13/23 07/17/24 levothyroxine 150 mcg tablet 150 mcg PO DAILY 08/13/23 07/17/24 lisinopril 2.5 mg tablet 2.5 mg PO DAILY 08/13/23 07/17/24 metoprolol succinate 50 mg 50 mg PO DAILY 08/13/23 07/17/24 tablet,extended release 24 hr nitroglycerin 0.4 mg sublingual 0.4 mg sublingual Q5M PRN 08/13/23 07/17/24 tablet rosuvastatin 20 mg tablet 20 mg PO QPM 08/13/23 07/17/24 Allergies Allergy/AdvReac Type Severity Reaction Status Date / Time bee venom protein (honey bee) Allergy Intermediate Swelling Verified 07/04/25 21:12 Exam Narrative: Exam Narrative: Constitutional: Appears well-developed and well-nourished. Alert. Conversant but at times can be a disjointed and confusing historian.. Non toxic. HENT: Head: Atraumatic. Nose: Nose normal. Mouth/Throat: Oral mucosa is clear and moist. no trismus. Pharynx normal. Tonsils symmetric. No tonsillar enlargement, erythema, or exudate. Eyes: Conjunctivae normal. EOM normal. Pupils equal, round, and reactive to light. No scleral icterus. Neck: Normal range of motion. Neck supple. No tracheal deviation present. No JVD Cardiovascular: Bradycardic, regular rhythm. No gallop. No friction rub. No murmur heard. Symmetric radial artery pulses Pulmonary/Chest: Effort normal. No stridor. No respiratory distress. No wheezes. No rales. No rhonchi . No tenderness. Abdominal: Soft. Bowel sounds normal. No distension. No mass. No tenderness. No rebound. No guarding. No CVA tenderness Musculoskeletal: RUE: Normal range of motion. No tenderness. No deformity LUE: Normal range of motion. No tenderness. No deformity RLE: Normal range of motion. No edema. No tenderness. No deformity LLE: Normal range of motion. No edema. No tenderness. No deformity Neurological: Alert and oriented to person, place, and time. Normal strength. CN II-VII intact. No sensory deficit. GCS eye subscore is 4. GCS verbal subscore is 5. GCS motor subscore is 6. Normal coordination Skin: Skin is warm and dry. No rash noted. No pallor. Normal capillary refill. Psychiatric: Normal mood. Polite but mildly anxious. Const: Vital Signs, click to edit/add: Vital Signs - 24 hr 07/04/25 18:58 07/04/25 19:15 07/04/25 19:45 Temperature 98.5 F Pulse Rate Pulse Rate [Right Radial] 62 72 62 Respiratory Rate 20 16 18 Blood Pressure Blood Pressure [Le ft Upper Arm] 161/99 H 162/103 H 163/104 H Pulse Oximetry 95 93 94 Oxygen Delivery Me thod Room Air Room Air Room Air 07/04/25 20:34 07/04/25 20:37 07/04/25 20:45 Temperature Pulse Rate 62 52 L Pulse Rate [Right Radial] Respiratory Rate 14 24 Blood Pressure 152/100 H Blood Pressure [Le ft Upper Arm] Pulse Oximetry 95 94 Oxygen Delivery Me thod Room Air 07/04/25 20:47 07/04/25 20:48 07/04/25 21:13 Temperature Pulse Rate 60 62 Pulse Rate [Right Radial] Respiratory Rate 21 28 H 28 H Blood Pressure 155/99 H Blood Pressure [Le ft Upper Arm] Pulse Oximetry 94 94 Oxygen Delivery Me thod 07/04/25 21:15 07/04/25 21:20 07/04/25 21:30 Temperature Pulse Rate 60 58 L 60 Pulse Rate [Right Radial] Respiratory Rate 19 17 24 Blood Pressure 144/90 H Blood Pressure [Le ft Upper Arm] Pulse Oximetry 95 92 93 Oxygen Delivery Me thod Room Air 07/04/25 21:32 07/04/25 21:45 07/04/25 21:47 Temperature Pulse Rate 60 58 L 58 L Pulse Rate [Right Radial] Respiratory Rate 21 19 14 Blood Pressure 125/90 H 149/93 H Blood Pressure [Le ft Upper Arm] Pulse Oximetry 94 93 94 Oxygen Delivery Me thod 07/04/25 22:00 07/04/25 22:02 07/04/25 22:15 Temperature Pulse Rate 55 L 55 L 58 L Pulse Rate [Right Radial] Respiratory Rate 16 22 17 Blood Pressure 157/98 H Blood Pressure [Le ft Upper Arm] Pulse Oximetry 95 93 94 Oxygen Delivery Me thod Room Air 07/04/25 22:17 Temperature Pulse Rate 57 L Pulse Rate [Right Radial] Respiratory Rate 14 Blood Pressure 142/85 H Blood Pressure [Le ft Upper Arm] Pulse Oximetry 91 Oxygen Delivery Me thod Course Vital Signs Vital signs: Initial Vital Signs Temperature 98.5 F 07/04/25 18:58 Temperature Source Temporal Artery Scan 07/04/25 18:58 Pulse Rate 62 07/04/25 18:58 Pulse Rhythm Regular 07/04/25 18:58 Respiratory Rate 20 07/04/25 18:58 Blood Pressure 161/99 H 07/04/25 18:58 Blood Pressure Mean 119 H 07/04/25 18:58 Pulse Oximetry 95 07/04/25 18:58 Oxygen Delivery Method Room Air 07/04/25 18:58 Vital Signs Temperature 98.5 F 07/04/25 18:58 Pulse Rate 62 07/04/25 18:58 Respiratory Rate 20 07/04/25 18:58 Blood Pressure 161/99 H 07/04/25 18:58 Pulse Oximetry 95 07/04/25 18:58 Oxygen Delivery Method Room Air 07/04/25 18:58 Temperature 98.5 F 07/04/25 18:58 Pulse Rate 57 L 07/04/25 22:17 Respiratory Rate 14 07/04/25 22:17 Blood Pressure 142/85 H 07/04/25 22:17 Pulse Oximetry 91 07/04/25 22:17 Oxygen Delivery Method Room Air 07/04/25 22:02 Medications Administered Medications: Discontinued Medications Generic Name Dose Route Start Last Admin Trade Name Freq PRN Reason Stop Dose Admin Aspirin 324 mg 07/04/25 20:03 07/04/25 20:37 Aspirin 81 Mg Tab.Chew PO 07/04/25 20:04 324 mg ONCE ONE Administration Isosorbide Mononitrate 30 mg 07/04/25 21:59 07/04/25 22:15 Isosorbide Mononitrate Er 30 Mg Tab PO 07/04/25 22:00 30 mg ONCE ONE Administration Medical Decision Making MDM Narrative Medical decision making narrative: This patient presents for evaluation of elevated blood pressure, readings at home for the past couple of days. He has also been feeling unwell with nonspecific fatigue ongoing for the past month or so and also episodes of dyspnea on exertion for the past several weeks. Sometimes occasional chest pain and also had some numbness and tingling affecting both of his hands. He has a known history of hypertension in the past, and he indicates that is generally pretty well controlled over the past couple of years (120/80) but also that he has not been checking it at home lately. He went to buy a blood pressure couple couple of days ago after his primary care provider told him he might have prediabetes. He has been measuring blood pressures in the 160s/90s at home. He is already on metoprolol, lisinopril for blood pressure. No concerning symptoms of chest pain , severe headache, neurologic deficits. The workup here is negative and the patient does not have any clinical, laboratory, ecg or historical signs of end-organ dysfunction. There is no signs of hypertensive emergency or urgency. For his dyspnea we did check a D-dimer, which was abnormal. We obtained CT scan of his chest which is negative for PE. Also negative for any sign of CHF, pulmonary edema, pleural effusions or other fluid overload. No sign of pneumonia, pneumothorax, or other cause for dyspnea. There are several incidental findings on the CT. 1. He has mild enlargement of his ascending aorta. Recommend outpatient follow-up for surveillance. No signs or symptoms of acute aortic dissection or rupture. 2. He has mild biventricular cardiomegaly. Recommend outpatient echo. No signs of acute CHF. 3. He has a left adrenal nodule. Recommend outpatient follow-up for further imaging. Patient provided with copies of his labs and CT to take with him to his PCP, who is a doctor in the [facility] system. Blood pressure was elevated triage but did come down a little bit while he was here in the ER. Still remained a little bit hypertensive so I given an extra dose of Imdur here. He also normally takes metoprolol at bedtime (typically 8:00 p.m.). With his resting sinus bradycardia, I felt it was better to hold off on his beta-kate. It is possible that he is having bradycardia during the day causing his fatigue and dyspnea. Gave him a single dose of Imdur here in the ER to try to keep his blood pressure under control overnight. He already has an appointment tomorrow morning with his primary care provider. Would recommend that he follow-up with his doctor to have his blood pressure medications adjusted. In particular consider decreasing or stopping his beta-kate given his bradycardia. Also needs outpatient echo to recheck is cardiomegaly and aorta. Also will need follow-up further imaging of his left adrenal gland. He does have history of coronary disease but it is so far away I do not have any evidence for active ACS or STEMI NSTEMI. No other signs of emergent end-organ damage from high blood pressure. At this point with reasonable clinical confidence I think he is safe to manage in the outpatient setting. Precautions for return to the ER reviewed with the patient and his . Lab Data Labs: Lab Results 07/04/25 07/04/25 07/04/25 Range/Units 19:33 19:35 21:58 WBC 7.75 (4.50-11.00) K/uL RBC 5.20 (4.30-5.90) m/uL Hgb 15.7 (13.5-17.5) gm/dL Hct 46.2 (37.0-53.0) % MCV 89 (80-100) fL MCH 30 (26-34) pg MCHC 34 (32-36) gm/dL RDW Coeff of Annel 12.3 (11.5-15.5) % Plt Count 208 (140-440) K/uL Neut % (Auto) 50.9 (42.0-72.0) % Lymph % (Auto) 33.5 (20-44) % Bullock % (Auto) 11.4 H (0.0-11.0) % Eos % (Auto) 3.2 (0.0-7.0) % Baso % (Auto) 0.9 (0.0-3.0) % Neut # (Auto) 3.94 (1.7-7.0) K/uL Lymph # (Auto) 2.60 (0.90-2.90) K/uL Bullock # (Auto) 0.90 (0.00-0.90) K/UL Eos # (Auto) 0.25 (0.00-0.50) K/uL Baso # (Auto) 0.07 (0.00-0.30) K/uL Abs Immat Gran (auto) 0.01 (0.00-0.30) K/uL Imm/Tot Granulo (auto) 0.1 % D-Dimer Quant (PE/DVT) 1.79 H (0.00-0.50) ug/ml Sodium 133 L (135-149) mmol/L Potassium 3.7 (3.6-5.1) mmol/L Chloride 101 (96-114) mmol/L Carbon Dioxide 23 (20-32) mmol/L Anion Gap 9 (7-15) mEq/L BUN 20 (7-30) mg/dL Creatinine 1.1 (0.5-1.5) mg/dL Estimated Creat Clear 74.16 Estimated GFR 76 ml/min Glucose 105 (60-115) mg/dL Calcium 8.8 (8.4-10.6) mg/dL POC Troponin I High Sensi 13.4 12.2 (2.9-28.0) pg/mL NT-Pro-B Natriuret Pep 66 (See Note) pg/mL TSH 2.140 (0.270-4.200) uIU/mL Imaging Data Chest x-ray: Attestation: I have reviewed the pertinent imaging results. Radiologist's impression: IMPRESSION: No acute or significant findings. ECG Data Attestation: I personally reviewed and interpreted this ECG as follows: Interpretation: Sinus bradycardia Rate 54 NV interval 174 Normal QRS axis. No pathologic Q-waves. No ST segment elevation depression. QTC 448, QTC 424 Discharge Plan Discharge Clinical Impression: Hypertension, Dyspnea, Ascending aorta enlargement, Left adrenal mass, Cardiomegaly, Bradycardia, sinus Patient Disposition: Home, Self-Care Condition: Stable Instructions: Hypertension (ED) Additional Instructions: So far your workup for high blood pressure looks reassuring. We do not have any evidence for stroke, heart failure, or kidney failure at this time. However your blood pressure continues to run higher than your goal range. We gave you 1 extra dose of blood pressure medication (Imdur) here in the ER tonight. Please do not take your dose of metoprolol tonight, because your heart rate is a little too low. Please follow-up with your regular doctor tomorrow morning because her blood pressure is still little too high. You in your regular doctor can help adjust her blood pressure medications to help bring your blood pressure back into the goal rang Please bring copies of your lab work and your CT scan with you to your doctor's appointment. Asked them to arrange an echocardiogram to recheck your heart (because the CT scan tonight suggest that your heart is mildly enlarged) and your aorta (because the CT scan tonight suggest that the aorta is mildly enlarged). Also ask your doctor which were arrange an MRI of your left adrenal gland. There is a small lump on the adrenal gland that is probably a benign (non-cancerous) tumor, but needs further workup. If you notice worsening symptoms especially worsening trouble breathing, worsening chest pain, severe headache, worsening numbness or weakness in your arm or leg, or any concerns, please come back to the ER right away. Prescriptions: No Action lisinopril 2.5 mg tablet 2.5 mg PO DAILY levothyroxine 150 mcg tablet 150 mcg PO DAILY rosuvastatin 20 mg tablet 20 mg PO QPM metoprolol succinate 50 mg tablet extended release 24 hr 50 mg PO DAILY ezetimibe 10 mg tablet 10 mg PO DAILY amlodipine 5 mg tablet 5 mg PO DAILY nitroglycerin 0.4 mg tablet, sublingual 0.4 mg sublingual Q5M PRN Rx Instructions: do not exceed 3 doses per episode Follow Up/Referrals: Provider,Not a Local [Primary Care Provider, Family Practice] Stand Alone Forms: Guest of a Guest Info Instructions
--- NOTE | 2025-07-04 19:32 | CRLHL7_ITS ---
For Patients: As a result of the Century Cures Act, medical imaging exams and procedure reports are released immediately into your electronic medical record. You may view this report before your referring provider. If you have questions, please contact your health care provider. INDICATION: Dyspnea on exertion, hypertension. TECHNIQUE: Chest 2 views. COMPARISON: October 12, 2021. FINDINGS: Cardiovascular and mediastinum: Heart size and vasculature are normal in caliber and appearance. Lungs and pleural spaces: Lungs are clear. No sign of infiltrate or mass. No sign of pleural effusion. No pneumothorax. Bones and soft tissues: Sternotomy. No significant findings. IMPRESSION: No acute or significant findings. Dictated by Ben White MD @ 07/04/2025 7:55:26 PM (Electronically Signed)
[2025-07-04 19:55] LABS: Hematocrit* 46.2 % (37.0-53.0); Hemoglobin* 15.7 gm/dL (13.5-17.5); Immature Granulocytes Abs Auto 0.01 K/uL (0.00-0.30); Immature Granulocytes Pct Auto 0.1 %; Lymphocytes Absolute Auto 2.60 K/uL (0.90-2.90); Mean Corpuscular HGB Conc 34 gm/dL (32-36); Mean Corpuscular Hemoglobin 30 pg (26-34); Mean Corpuscular Volume 89 fL (80-100); RDW Coefficient of Variation % 12.3 % (11.5-15.5); Red Blood Count* 5.20 m/uL (4.30-5.90); White Blood Count* 7.75 K/uL (4.50-11.00)
[2025-07-04 20:03] LABS: Chloride* 101 mmol/L (96-114); Potassium* 3.7 mmol/L (3.6-5.1); Sodium* 133 mmol/L (135-149)
[2025-07-04 20:06] LABS: Anion Gap 9 mEq/L (7-15); Blood Urea Nitrogen* 20 mg/dL (7-30); Carbon Dioxide* 23 mmol/L (20-32); Creatinine* 1.1 mg/dL (0.5-1.5); Est. Creatinine Clearance* 74.16; Estimated Glomerular Filt Rate 76 ml/min
[2025-07-04 20:07] LABS: Calcium* 8.8 mg/dL (8.4-10.6); Glucose* 105 mg/dL (60-115)
[2025-07-04 20:08] LABS: D Dimer Quantitative* 1.79 ug/ml (0.00-0.50)
[2025-07-04 20:09] LABS: Slide Review Reflex No
[2025-07-04 20:16] LABS: NT Pro B Type NatriureticPept* 66 pg/mL (See Note)
[2025-07-04] MEDS: ASPIRIN 81 MG TAB.CHEW 324 MG PO (20:37)
--- NOTE | 2025-07-04 20:48 | CRLHL7_ITS ---
For Patients: As a result of the Century Cures Act, medical imaging exams and procedure reports are released immediately into your electronic medical record. You may view this report before your referring provider. If you have questions, please contact your health care provider. INDICATION: Dyspnea, fatigue, elevated D-dimer TECHNIQUE: CT chest with i.v. contrast using pulmonary angiographic technique. MIPS, coronal and sagittal reformats were obtained. CONTRAST: 95 mL Isovue 370 COMPARISON: None FINDINGS: Cardiovascular: The pulmonary arteries are unremarkable in enhancement with no evidence of acute pulmonary embolism. Mild biventricular cardiomegaly is present. Mild aneurysmal enlargement of the ascending aorta is noted measuring 4.1 cm. Previous median sternotomy and coronary artery bypass grafting (CABG) noted. Mediastinum: No mass or adenopathy seen. Lung: Both lungs are unremarkable in appearance. Pleura and pericardium: No sign of pleural effusion seen. No significant pericardial effusion is present. Chest wall and axilla: No mass or adenopathy seen. Bone: Unremarkable for age. Upper abdomen: An incidental left adrenal nodule is noted, measuring 3 x 2.7 cm. There is a punctate calcified gallstone noted. IMPRESSIONS: 1. No CT evidence of acute pulmonary emboli seen. 2. Mild aneurysmal enlargement of the ascending aorta is noted measuring 4.1 cm. 3. An incidental left adrenal nodule is noted, measuring 3 x 2.7 cm. In accordance with ACR Guidelines, further characterization with outpatient Adrenal CT or MRI is recommended. 4. Mild biventricular cardiomegaly is present. REFERENCE: 1. Xu Raman, Naun Salas et al. Management of Incidental Adrenal Masses: A White Paper of the ACR Incidental Findings Committee. JACR.148);1038-44. DOI:https://doi.org/10.1016/j.jacr.2017.05.001. Dictated by Binh Haley MD @ 07/04/2025 9:28:05 PM Please note that all CT scans at this facility use dose modulation, iterative reconstruction, and/or weight-based dosing when appropriate to reduce radiation dose to as low as reasonably achievable. Dictated by: Binh Haley MD @ 07/04/2025 21:32:13 (Electronically Signed)
[2025-07-04 21:02] LABS: TSH With Reflex to FT4* 2.140 uIU/mL (0.270-4.200)
[2025-07-04] MEDS: ISOSORBIDE MONONITRATE ER 30 MG TAB PO (22:15)
== END 2025-07-04 23:05 | disposition home or self-care (01) ==
PROVIDERS: Emergency Provider Emergency Medicine
DX: R06.00 Dyspnea, unspecified (principal); I11.9 Hypertensive heart disease without heart failure; E27.9 Disorder of adrenal gland, unspecified; R00.1 Bradycardia, unspecified; Z79.899 Other long term (current) drug therapy
CPT/HCPCS: 36415; 71046; 71275; 80048; 83880; 84443; 84484; 85025; 85379; 93005; 99284; 99285; A9270; Q9967